=== PATIENT | female | born 1990 | race Hispanic/Latino ===

== ENCOUNTER 2017-06-11 10:27 | Emergency (ER) | payer SELFPAY ==
[2017-06-11] MEDS ORDERED: LIDOCAINE 1% W/EPI 1:100,000 MDV 50 ML VIAL ONE (11:16)
--- NOTE | 2017-06-11 12:14 | EDPHYS ---
Physician Documentation [facility] Name: Ana Rice Age: 26 yrs Sex: Female : 1990 Arrival Date: 06/11/2017 Time: 10:29 Bed 5 Private MD: ED Physician Salvador Wharton HPI: 06/11 11:02 This 26 yrs old Female presents to ER via Ambulatory with complaints of Boil. rn 11:02 the patient presents with a swollen area of the buttocks. Description: erythematous, rn fluctuant, swollen, tense, warm. Onset: The symptoms/episode began/occurred 6 day(s) ago. Possible cause(s): unknown. Modifying factors: the symptoms are alleviated by nothing, the symptoms are aggravated by touching. Severity of symptoms: At their worst the symptoms were mild, in the emergency department the symptoms are unchanged. The patient has experienced a previous episode. Reports swelling and tenderness to right buttocks, no drainage has happened once before that resolved on its own. . 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 - Social history:: Smoking status: Patient uses tobacco products, denies chronic smoking, but will smoke occasionally. - Family history:: not pertinent. - Hospitalizations: : No recent hospitalization is reported. ROS: 11:02 Constitutional: Negative for fever, chills, and weight loss, Eyes: Negative for injury, rn pain, redness, and discharge, Cardiovascular: Negative for chest pain, palpitations, and edema, Respiratory: Negative for shortness of breath, cough, wheezing, and pleuritic chest pain, Abdomen/GI: Negative for abdominal pain, nausea, vomiting, diarrhea, and constipation, Back: Negative for injury and pain, Skin: + swelling and pain to right buttocks Neuro: Negative for headache, weakness, numbness, tingling, and seizure. Exam: 11:02 Constitutional: This is a well developed, well nourished patient who is awake, alert, rn and in no acute distress. Skin: Warm, dry. + 3x3cm area of fluctuance and tenderness right buttocks, does not abut anus Vital Signs: 10:40 BP 125 / 74; Pulse 94; Resp 16; Temp 98.3; Pulse Ox 100% on R/A; Weight 65.77 kg; hb Height 5 ft. (152.40 cm); Pain 8/10; 10:58 BP 107 / 55; Pulse 88; Pulse Ox 100% on R/A; ap3 10:40 Body Mass Index 28.32 (65.77 kg, 152.40 cm) hb Procedures: 11:55 I \T\ D: Incision and drainage was performed for an abscess of the right buttocks Prepped rn with Betadine, Anesthetized with 5 ml's 1% Lidocaine w/ Epi. Incised with #11 blade. Drained moderate amount purulent fluid. Packed with iodoform gauze, Dressing: sterile 4x4 gauze, the patient tolerated the procedure well. MDM: 10:42 Patient medically screened. rn 12:12 Differential diagnosis: abscess. Data reviewed: vital signs, nurses notes, and as a rn result, I will discharge patient. Counseling: I had a detailed discussion with the patient and/or guardian regarding: the historical points, exam findings, and any diagnostic results supporting the discharge/admit diagnosis, the need for outpatient follow up, to return to the emergency department if symptoms worsen or persist or if there are any questions or concerns that arise at home. 12:13 Response to treatment: the patient's symptoms have mildly improved after treatment, and rn as a result, I will discharge patient. 06/11 12:13 Order name: Wound Culture rn 06/11 10:52 Order name: Incision \T\ Drainage Setup; Complete Time: 11:06 rn Administered Medications: 11:35 Drug: Lidocaine (1 %) 1 vials {Note: Administered by Dr. Wharton.} Volume: 20 ml; Route: ae1 Infiltration; Disposition: 06/11/17 12:14 Discharged to Home. Impression: Cutaneous abscess of buttock. - Condition is Stable. - Discharge Instructions: Abscess, Incision and Drainage, Wound Packing. - Prescriptions for Clindamycin HCl 300 mg Oral Capsule - take 1 capsule by ORAL route every 6 hours for 10 days; 40 capsule. Tylenol- Codeine #3 300-30 mg Oral Tablet - take 2 tablets by ORAL route every 6 hours As needed; 15 tablet. - Medication Reconciliation Form, Thank You Letter, Antibiotic Education, Prescription Opioid Use, Work release form form. - Follow up: Ruben Cannon MD; When: 2 - 3 days; Reason: Wound Recheck, Recheck today's complaints, Re-evaluation by your physician. - Problem is new. - Symptoms have improved. Signatures: Dispatcher [employer] EDSlavador Martínez MD MD rn Baxter, Heather RN RN Carlos Enriquez RN RN ae1
--- NOTE | 2017-06-11 12:14 | ER ---
Nurse's Notes [facility] Name: Ana Rice Age: 26 yrs Sex: Female : 1990 Arrival Date: 06/11/2017 Time: 10:29 Bed 5 Private MD: Diagnosis: Cutaneous abscess of buttock Presentation: 06/11 10:39 Presenting complaint: Patient states: Painful abscess on right buttock x 6 days. hb Transition of care: patient was not received from another setting of care. Onset of symptoms is unknown. Care prior to arrival: None. 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 - Social history:: Smoking status: Patient uses tobacco products, denies chronic smoking, but will smoke occasionally. - Family history:: not pertinent. - Hospitalizations: : No recent hospitalization is reported. Screenin:57 Abuse screen: Denies threats or abuse. Nutritional screening: No deficits noted. ap3 Tuberculosis screening: No symptoms or risk factors identified. Fall Risk None identified. Assessment: 10:53 General: Appears uncomfortable, Behavior is cooperative, anxious. Pain: Complains of ap3 pain in right gluteus bronson Pain began six days ago. Pain: Pain currently is 8 out of 10 on a pain scale. Neuro: Level of Consciousness is awake, alert, obeys commands, Oriented to person, place, time, situation. Cardiovascular: Patient's skin is warm and dry. Respiratory: Airway is patent. GI: No signs and/or symptoms were reported involving the gastrointestinal system. : No signs and/or symptoms were reported regarding the genitourinary system. EENT:. EENT: No signs and/or symptoms were reported regarding the EENT system. Derm: Skin is normal, abscess on medial right gluteus. Musculoskeletal: Reports pain in right gluteus bronson. Vital Signs: 10:40 BP 125 / 74; Pulse 94; Resp 16; Temp 98.3; Pulse Ox 100% on R/A; Weight 65.77 kg; hb Height 5 ft. (152.40 cm); Pain 8/10; 10:58 BP 107 / 55; Pulse 88; Pulse Ox 100% on R/A; ap3 10:40 Body Mass Index 28.32 (65.77 kg, 152.40 cm) hb ED Course: 10:29 Patient arrived in ED. as 10:40 Triage completed. hb 10:41 Arm band placed on right wrist. hb 10:42 Salvador Wharton MD is Attending Physician. rn 10:55 Carlos Enriquez, RN is Primary Nurse. ae1 10:57 Patient has correct armband on for positive identification. Bed in low position. Call ap3 light in reach. Pulse ox on. NIBP on. 11:35 Assist provider with I \T\ D: of an abscess on Set up I\T\D tray. Performed by Salvador Wharton ae 1 Culture sent to lab. Wound packed. Dressing with 4X4s, Tegaderm Patient tolerated well. 12:14 Ruben Cannon MD is Referral Physician. rn 12:38 Patient did not have IV access during this emergency room visit. ae1 Administered Medications: 11:35 Drug: Lidocaine (1 %) 1 vials {Note: Administered by Dr. Wharton.} Volume: 20 ml; Route: ae1 Infiltration; Outcome: 12:14 Discharge ordered by . rn 12:37 Attestation : I agree with the charting done by Carissa Martínez, nursing home director. . ae1 12:38 Discharged to home ambulatory. ae1 12:38 Condition: stable 12:38 Discharge instructions given to patient, Instructed on discharge instructions, follow up and referral plans. medication usage, Demonstrated understanding of instructions, Prescriptions given X 2. 12:38 Patient left the ED. ae1 Signatures: June Cannon Roman, MD MD rn Baxter, Heather, RN RN Carlos Enriquez, SHIRLEY RN ae1 Carissa Martínez
== END 2017-06-11 12:38 | disposition home or self-care (01) ==
LOC: ER 10:27
PROC: 0J990ZZ Drainage of Buttock Subcutaneous Tissue and Fascia, Open Approach (ICD-10-PCS; principal; 2017-06-11)
DX: L02.31 Cutaneous abscess of buttock (principal); Z72.0 Tobacco use
CPT/HCPCS: 87070; 87205; 99284